=== PATIENT | female | born 1980 | race Caucasian/White ===

== ENCOUNTER 2019-08-08 10:07 | Emergency (ER) | payer SELFPAY ==
[~2019-08-08] VITALS: Ht 188 cm; Wt 104.3 kg
[2019-08-08 10:20] VITALS: BP 151/73
--- NOTE | 2019-08-08 10:20 | NUR ---
Patient ambulated to bed 5. RN evaluating patient at bedside.
--- NOTE | 2019-08-08 10:31 | NUR ---
Dr. Ac is evaluating the patient at bedside.
[2019-08-08] MEDS ORDERED: LIDOCAINE/EPI 1% 1:100000 20 ML VIAL INJ ONE (10:50)
--- NOTE | 2019-08-08 11:08 | NUR ---
Dr. Ac at bedside for incision and drainage of abscess.
[2019-08-08] MEDS ORDERED: ETHYL CHLORIDE 105 ML SPR TP ONE ×2 (11:10)
[2019-08-08 11:39] VITALS: BP 118/61
--- NOTE | 2019-08-08 11:40 | NUR ---
Patient discharged with v/s stable. Written and verbal after care instructions given and explained. Patient alert, oriented and verbalized understanding of instructions. Ambulatory with steady gait. All questions addressed prior to discharge. ID band removed. Patient advised to follow up with PMD. Rx of BACTRIM, KEFELX given. Patient educated on indication of medication including possible reaction and side effects. Opportunity to ask questions provided and answered.
== END 2019-08-08 11:40 | disposition home or self-care (01) ==
LOC: MED 10:07
DX: L02.412 Cutaneous abscess of left axilla (principal); L02.415 Cutaneous abscess of right lower limb; L03.112 Cellulitis of left axilla; L03.115 Cellulitis of right lower limb
CPT/HCPCS: 10061; 99284; J2001; 99283